=== PATIENT | female | born 1995 | race Caucasian/White ===

== ENCOUNTER 2025-02-19 19:31 | Emergency (ER) | payer MEDICAID ==
[~2025-02-19] VITALS: Ht 172.7 cm; Wt 60.0 kg
[2025-02-19 22:10] LABS: MEAN PLATELET VOLUME 8.2 FL (7.4-10.4); RED CELL DISTRIBUTION WIDTH 14.3 % (11.5-14.5)
--- NOTE | 2025-02-19 22:15 | Physician Documentation ---
History of Present Illness Chief Complaint: Post-operative complication Stated Complaint: ABD PAIN Time Seen by MD: 21:31 OK to notify your PCP?: Yes Source: patient, RN/MD, RN notes reviewed, old records Mode of Arrival: POV Exam Limitations: no limitations HPI 8 This patient is a 29 y/o female who presents to ED with chief complaint of abdominal pain after today at approximately 5PM. Patient states that she was seen today at a Clinic in [place] for procedure. She states after going home she continued to feel worse with pain in her lower abdomen. Patient then returned to the clinic and had repeat US which showed she had retained a lot of free fluid and a large blood clot in the uterus. Patient was then referred to ER for D&C, as the doctor there had already left. Patient on arrival continues to complain of worsening abdominal pain. She is A4. She is 8 weeks 6 days . PATIENT IS BLOOD TYPE A POSITIVE Patient denies any other associated symptoms at this time. Patient denies any other alleviating or exacerbating factors. Medication Reconciliation Allergies: Uncoded Allergies: NITROUS (Allergy, Severe, pain, 02/19/25) NEOSPORIN (Allergy, Intermediate, Rash, 02/19/25) Past Medical History Past Medical History: No Pertinent History Past Surgical History: no surgical history Smoking Status: Never smoker Alcohol Use: None Drug Use: none Review of Systems All Other Systems at this time: Reviewed and Negative Physical Exam Vital Signs: RN Vital Signs have been reviewed: Yes, Temperature: 97.6, Source: Temporal, Heart Rate: 68, Respiratory Rate: 15, BP: 101/55, Pulse Oximetry: 98, Weight: 60.000 Oxygen Flow Rate: 0 Physical Exam General: The patient is well developed, well nourished, nontoxic appearing and is in no acute distress. Skin: [place], warm and dry with no rashes. HEENT: Head was normocephalic and atraumatic. Eyes - pupils equal, round, reactive to light and accommodation. Extraocular movements were intact. Conjunctivae were nonicteric. The mouth and oropharynx were clear with moist mucous membranes. There were no pharyngeal exudates or erythema. Neck: Supple and nontender. There was no jugular venous distention, lymphaden opathy, thyromegaly or masses. Chest: Clear to auscultation bilaterally without wheezes, rales or rhonchi. No accessory muscle use. No dullness to percussion. Heart: Rate regular and rhythmic. S1, S2. No murmurs. Palpation of the chest wall was normal. No rubs or thrills. Abdomen: Hyperactive bowel sounds. Tenderness to the suprapubic area with associated fullness. Otherwise abdomen is soft and nondistended. Positive bowel sounds. No guarding or rebound. No hepatosplenomegaly or palpable masses. Extremities: No cyanosis, clubbing or edema. The patient moves all extremities. Pulses were equal and symmetric. Neurologic: Motor and sensation grossly intact. A & O x4. Psychologic: The patient was oriented to person, place and time. Progress Progress Note [id number]: Spoke with OBGYN services at [facility]. They are aware and recomm end transfer for D&C procedure. Patient informed and agrees with plan. Results/Orders Reviewed/noted all lab results: Yes Results/Orders Orders - ROXI MC MD BMP (02/19/25 21:30) Pt Inr (02/19/25 21:31) PTT (02/19/25 21:31) Type And Screen (02/19/25 21:31) Ct Abdomen Pelvis (02/19/25 21:31) Completed Orders - ROXI MC MD Cbc/Diff (02/19/25 21:30) Vital Signs 02/19/25 02/19/25 02/19/25 02/19/25 19:39 19:56 20:04 21:05 Temp 98.6 97.8 97.6 Pulse 85 77 73 Resp 18 20 20 20 B/P (MAP) 113/61 115/67 (83) 100/57 (71) Pulse Ox 98 99 100 O2 Flow Rate 0 0 0 02/19/25 21:41 Pulse 68 Resp 15 B/P (MAP) 101/55 (70) Pulse Ox 98 Laboratory Tests Test 02/19/25 21:58 White Blood Count 9.6 Red Blood Count 4.36 Hemoglobin 12.8 Hematocrit 36.8 Mean Corpuscular Volume 84.4 Mean Corpuscular Hemoglobin 29.5 Mean Corpuscular Hemoglobin Concent 34.9 Red Cell Distribution Width 14.3 Platelet Count 161 Mean Platelet Volume 8.2 Neutrophils (%) (Auto) 75.0 Lymphocytes (%) (Auto) 17.5 L Monocytes (%) (Auto) 6.7 Eosinophils (%) (Auto) 0.3 Basophils (%) (Auto) 0.5 Neutrophils # (Auto) 7.2 Lymphocytes # (Auto) 1.7 Monocytes # (Auto) 0.6 Eosinophils # (Auto) 0.0 Basophils # (Auto) 0.0 CBC Comment Coagulation Comments Chemistry Comments Re-Evaluation Re-Evaluation : Re-Evaluation: Improved Progress Patient was seen and examined. Patient is given reassurance. Patient was having some abdominal pain. She had a CAT scan and ultrasound that showed increased fluids and bleeding within the uterus. There was no peritoneal signs there was some free fluid. No antibiotics were given at this time there is no perforation of the uterus. CBC is reassuring with a WBC of 9.6 no anemia hemoglobin 12 hematocrit 36 no left shift PMNs 75% chemistries also within normal limits and coagulations also within normal limits patient states her pain is 8/10 she was offered [place] but refused at that time IV lines were established. Patient was then transferred to [facility] for emergent D N C. patient's blood type is A positive EKG/XRAY/CT/US/VASC/MRI CT : Interpreted By: radiologist CT: abdomen/pelvis With Contrast?: Yes Impression [address] [address] CAT SCAN Patient: JAREN TEJEDA Medical Record: [id number] [facility] 1995, Age: 29 Sex: Female Location: ER Patient Status: REG ER Service Date/Time: 02/19/252219 Ordering Physician: ROXI MC MD Exam: CT ABDOMEN PELVIS Exam: CT CT ABDOMEN PELVIS W/ IV CONTRAST History: ABD PAIN and bleeding s/p @ 1700 today COMPARISON: None Technique: Multidetector spiral CT of the abdomen and pelvis was performed from lung bases to pubic symphysis. Intravenous contrast was administered during this examination. Portal venous imaging was obtained. Axial, coronal and sagittal multiplanar reformats were performed by the technologist on a separate workstation. Radiation Dose : 1. Abdomen/Pelvis: CTDIvol 8.83 mGy, DLP 397.66 mGy*cm. CONTRAST: Type of contrast: Omni 300 Contrast injected: 100 ml Findings: Lung Bases: No acute or significant lung base finding. Normal heart size. No pleural or pericardial effusion. Liver: The liver is normal in size. No focal lesions. Normal hepatic vascular enhancement. Gallbladder and biliary Tree: Unremarkable Spleen: Unremarkable Pancreas: The pancreas is normal in appearance without focal lesions or abnormal enhancement. Adrenal Glands: Unremarkable Kidneys: No hydronephrosis. Bladder: Unremarkable Bowel: The stomach is grossly normal in appearance. Small bowel and colon are normal in caliber and distribution. Normal appendix is visualized in the right lower quadrant without findings of appendicitis. Large volume of stool throughout the colon. Ascites: Absent Lymphadenopathy: No mesenteric, retroperitoneal or periportal lymphadenopathy. Abdominal wall and Mesentery: Unremarkable. Vasculature: The visualized abdominal aorta is normal in size and caliber. Abdominal and pelvic vessels demonstrate normal enhancement. Pelvic Organs: And vision appears diffusely thickened measuring 6.1 cm. Musculoskeletal: No aggressive focal bony lesions, acute fractures or dislocation. IMPRESSION: No acute abdominal or pelvic finding. Endometrium appears markedly thickened. Alternatively, this could represent a fibroid. Elective pelvic ultrasound recommended. Large volume of stool throughout the colon. Radiation optimization: All CT scans at this facility use at least one of these dose optimization techniques: automated exposure control mA and/or kV adjustment per patient size (includes targeted exams where dose is matched to clinical indication) or iterative reconstruction. Electronically Signed by:JOYCE THEODORE MD Date & Time: 02/19/252251 Dictated by: JOYCE THEODORE MD Dictation date and time: 02/19/252251 Primary Care Provider: NO PRIMARY CARE PROVIDER cc: ROXI MC MD ~ EDMD Dr. Mc reviewed above imaging and agrees with interpretation. Ultrasound : Interpreted By: radiologist Ultrasound of: obstetric Impression [address] [address] ULTRASOUND Patient: JAREN TEJEDA Medical Record: [id number] [facility] 1995, Age: 29 Sex: Female Location: ER Patient Status: [facility] ER Service Date/Time: 02/20/25 Ordering Physician: ROXI MC MD Exam: US OB INDICATION: vaginal pain postabortion TECHNIQUE: Multiple real-time grayscale transabdominal sonographic images along with color and duplex Doppler of the uterus and ovaries were obtained. COMPARISON: None FINDINGS: The uterus measures 12.4 x 8.5 x 7.8 cm. Moderately heterogeneous endometrial cavity measures 8.4 x 6.7 x 5.7 cm. Left adnexal free fluid. Right ovary measures 3.0 x 2.4 x 1.9 cm with normal Doppler color flow Left ovary measures 2.9 x 2.0 x 1.3 cm with normal Doppler color flow IMPRESSION: 1. Moderately heterogeneous endometrial cavity measures 8.4 x 6.7 x 5.7 cm. Findings are suspicious for retained products of conception. 2. Left adnexal free fluid. Electronically Signed by:JERICHO MCKEON MD Date & Time: 02/20/25116 Dictated by: JERICHO MCKEON MD Dictation date and time: 02/20/25116 Primary Care Provider: NO PRIMARY CARE PROVIDER cc: ROXI MC MD ~ Medical Decision Making Additional info obtained from: old records Differential Dx:Considerations: Include: -Complete, - Incomplete, -Inevitable, -Missed, -Threatened, Abruptio placentae, Bowel obstruction, GI hemorrhage, Other Departure Time of Disposition: 02:02 Disposition: 02 SHORT TERM HOSPITAL Impression: Primary Impression: Post-operative complication Qualified Codes: N99.89 - Other postprocedural complications and disorders of genitourinary system Additional Impression: Status post elective Condition: Critical Referrals: NO PRIMARY CARE PROVIDER (PCP) Critical Care Note Total Time (mins): 30 Critical Care Note The very real possibility of a deterioration of this patient's condition required the highest level of my preparedness for sudden, emergent intervention. I provided critical care services, which included medication orders, frequent reevaluations of the patient's condition and response to treatment, ordering and reviewing test results, and discussing the case with various consultants. Excludes time spent performing separately billable procedures. The critical care time associated with the care of the patient was 30 minutes. Signature Scribe Signature: Scribed for Roxi Mc MD by Rena Vargas. 02/19/25 22:35 Attestation: The note accurately reflects work and decisions made by me.Roxi Mc MD 02/19/25 22:15 ROXI MC MD Feb 19, 2025 22:15
[2025-02-19] MEDS ORDERED: iohexol 300mg/ml 100ml inj. ONE (22:16)
[2025-02-19 22:17] LABS: CREATININE 0.57 MG/DL (0.40-0.90); TOTAL CARBON DIOXIDE 25.1 MMOL/L (24-32); eCRCL 137 ML/MIN; eGFR > 90 ML/MIN
[2025-02-19 22:20] LABS: APTT 27 SECONDS (22-32); INR 1.1 INR
[2025-02-19] MEDS: HYDROcodone/acetaminophen 10/325mg tab PO ONE (22:40)
--- NOTE | 2025-02-19 22:55 | RADIOLOGY REPORT ---
Exam: CT CT ABDOMEN PELVIS W/ IV CONTRAST History: ABD PAIN and bleeding s/p @ 1700 today COMPARISON: None Technique: Multidetector spiral CT of the abdomen and pelvis was performed from lung bases to pubic symphysis. Intravenous contrast was administered during this examination. Portal venous imaging was obtained. Axial, coronal and sagittal multiplanar reformats were performed by the technologist on a separate workstation. Radiation Dose : 1. Abdomen/Pelvis: CTDIvol 8.83 mGy, DLP 397.66 mGy*cm. CONTRAST: Type of contrast: Omni 300 Contrast injected: 100 ml Findings: Lung Bases: No acute or significant lung base finding. Normal heart size. No pleural or pericardial effusion. Liver: The liver is normal in size. No focal lesions. Normal hepatic vascular enhancement. Gallbladder and biliary Tree: Unremarkable Spleen: Unremarkable Pancreas: The pancreas is normal in appearance without focal lesions or abnormal enhancement. Adrenal Glands: Unremarkable Kidneys: No hydronephrosis. Bladder: Unremarkable Bowel: The stomach is grossly normal in appearance. Small bowel and colon are normal in caliber and distribution. Normal appendix is visualized in the right lower quadrant without findings of appendicitis. Large volume of stool throughout the colon. Ascites: Absent Lymphadenopathy: No mesenteric, retroperitoneal or periportal lymphadenopathy. Abdominal wall and Mesentery: Unremarkable. Vasculature: The visualized abdominal aorta is normal in size and caliber. Abdominal and pelvic vessels demonstrate normal enhancement. Pelvic Organs: And vision appears diffusely thickened measuring 6.1 cm. Musculoskeletal: No aggressive focal bony lesions, acute fractures or dislocation. IMPRESSION: No acute abdominal or pelvic finding. Endometrium appears markedly thickened. Alternatively, this could represent a fibroid. Elective pelvic ultrasound recommended. Large volume of stool throughout the colon. Radiation optimization: All CT scans at this facility use at least one of these dose optimization techniques: automated exposure control mA and/or kV adjustment per patient size (includes targeted exams where dose is matched to clinical indication) or iterative reconstruction.
--- NOTE | 2025-02-20 01:20 | RADIOLOGY REPORT ---
INDICATION: vaginal pain postabortion TECHNIQUE: Multiple real-time grayscale transabdominal sonographic images along with color and duplex Doppler of the uterus and ovaries were obtained. COMPARISON: None FINDINGS: The uterus measures 12.4 x 8.5 x 7.8 cm. Moderately heterogeneous endometrial cavity measures 8.4 x 6.7 x 5.7 cm. Left adnexal free fluid. Right ovary measures 3.0 x 2.4 x 1.9 cm with normal Doppler color flow Left ovary measures 2.9 x 2.0 x 1.3 cm with normal Doppler color flow IMPRESSION: 1. Moderately heterogeneous endometrial cavity measures 8.4 x 6.7 x 5.7 cm. Findings are suspicious for retained products of conception. 2. Left adnexal free fluid.
[2025-02-20 02:50] VITALS: BP 94/56; PULSE 77; RESP 18; TEMP 97.7; O2SAT 100
== END 2025-02-20 03:06 | disposition short-term general hospital (02) ==
LOC: ER 19:33
DX: O04.89 (Induced) termination of pregnancy with other complications (principal); N99.89 Other postprocedural complications and disorders of genitourinary system
CPT/HCPCS: 36415; 74177; 76856; 80048; 82948; 85025; 85610; 85730; 86885; 86900; 86901; 93976; 99291; Q9967